=== PATIENT | female | born 1990 | race Two or more races ===

== ENCOUNTER 2021-12-18 10:59 | Emergency (ER) | payer OTHER ==
[2021-12-18 12:03] LABS: Urine Bacteria NONE SEEN /hpf (None Seen); Urine Blood Negative /uL (Negative); Urine Mucus FEW (None Seen); Urine Specific Gravity 1.022 (1.001-1.035); Urine WBC 11 /hpf (0 - 5)
[2021-12-18] MEDS ORDERED: KETOROLAC TROMETH 60MG/2ML VIAL IM ONE (12:15)
[2021-12-18] MEDS ORDERED: IBUP800T27 PO (12:34)
[2021-12-18] MEDS ORDERED: CIPR-173 PO (12:34)
[2021-12-18 12:43] VITALS: BP 120/74
== END 2021-12-18 12:44 | disposition home or self-care (01) ==
LOC: ER 10:59
DX: S39.012A Strain of muscle, fascia and tendon of lower back, initial encounter (principal); N39.0 Urinary tract infection, site not specified; X58.XXXA Exposure to other specified factors, initial encounter; Y93.89 Activity, other specified; Y92.89 Other specified places as the place of occurrence of the external cause; Y99.8 Other external cause status
CPT/HCPCS: 81001; 81025; 96372; 99283; J1885